=== PATIENT | male | born 1945 | race Caucasian/White ===

== ENCOUNTER 2021-12-26 07:50 | Outpatient (CLI) | payer MEDICARE, OTHER, SELFPAY ==
--- NOTE | 2021-12-26 08:03 | XRR_ITS ---
PROCEDURE INFORMATION: Exam: XR Abdomen Exam date and time: 12/26/2021 8:04 AM Age: 76 years old Clinical indication: Condition or disease; Kidney or ureter condition; Calculus (stone) in kidney; Additional info: Stones, kub @[facility] at 8:30 appt to follow TECHNIQUE: Imaging protocol: Radiologic exam of the abdomen. Views: Frontal supine view of the abdomen. 1 View. COMPARISON: CT abdomen pelvis wo con [id number] 12/25/2021 4:55 AM FINDINGS: Gastrointestinal tract: Moderate stool in the proximal transverse colon. Scattered gas and mild stool throughout the remainder of the colon. The rectum is decompressed. No small bowel distention or obstruction. Intraperitoneal space: No visible pneumoperitoneum. Organs: Stable 4 mm calculus in the right ureter at the L4-L5 level. Stable right renal calculi. Bones/joints: Degenerative changes and mild curvature of the lumbar spine. XR/XR KUB [id number] IMPRESSION: 1. Stable right ureteral calculus at L4-L5.
== END 2021-12-26 07:51 | disposition home or self-care (01) ==
LOC: RAD 07:57
PROVIDERS: PCP Student in an Organized Health Care Education/Training Program; Visit Provider Urology
DX: N20.1 Calculus of ureter (principal); N20.0 Calculus of kidney
CPT/HCPCS: 74018; 99204

== ENCOUNTER 2022-01-01 05:51 | Day surgery (SDC) | payer MEDICARE, OTHER, SELFPAY ==
[2021-12-28 13:15] VITALS: BMI 29.8
--- NOTE | 2021-12-28 13:30 | ANES.PREANE2 ---
Pre-Anesthetic Assessment Height/Weight: Height 1.8 m Weight 97.069 kg Preop Diagnosis: Refractory right ureteral calculus Operation Date: 01/01/22 07:00 Proposed Procedures p cystoscopy right retrograde ureteroscopy laser stent [id number] modifier 26,N20.1(Not Applicable) - Jone Lima MD s Retrograde Pyelogram(Right) - MD lew Roberts Laser Lithotripsy(Right) - MD lew Roberts Ureteral Stent Placement(Right) - Jone Lima MD Familial anesthetic complications: none Was Beta Yenny taken within 24 hours: N/A Was Clonidine taken within 24 hours: N/A Social Tobacco and No alcohol Exam alert, oriented x 3 and regular rate & rhythm b/l wheezing Airway Submandibular: within normal limits Cervical ROM: within normal limits Mallampati: Class I Dentition: false Pulmonary Asthma, Chronic Obstructive Pulmonary Disease and Sleep Apnea (Uses CPAP with 2 LPM O2 ) CV/HEM MET = 4 limited d/t SOB (no CP) Kidney stones Hepatic None reported GI Gastroesophageal Reflux Disease (Well controlled ) Constipated for five days since start of kidney stones, no N/V, using Bisacodyl he plans see PCP for this before the weekend. Metabolic Hyperlipidemia [facility] [place] None reported Neuropsych None reported Anesthetic Plan ASA status: 3 Anesthesia: Anesthesia Evaluation and General Other: We discussed risk and benefits of general anesthesia including PONV, sore throat (sometimes severe), corneal abrasion, positioning and peripheral nerve injuries, life threatening allergic reaction, post operative ICU admission requiring prolonged intubation, aspiration, stroke, heart attack, , and rare incidences of recall. Patient consents to proceed with general anesthesia. EKG ordered but not completed today. Will complete DOS. Risk of > 500 ml blood loss (7ml/kg in children): No Medications/Allergies Home Medications Medication Instructions Recorded Confirmed Last Taken Type amitriptyline 50 mg tablet 50 mg PO .AT HS PRN 12/26/21 12/26/21 Unknown History amlodipine 10 mg tablet 10 mg PO DAILY 12/26/21 12/26/21 Unknown History atorvastatin 20 mg tablet 20 mg PO .1/2 TABLET DAILY 12/26/21 12/26/21 Unknown History baclofen 20 mg tablet 20 mg PO .HS 12/26/21 12/26/21 Unknown History celecoxib 100 mg capsule 100 mg PO BID 12/26/21 12/26/21 Unknown History cetirizine 10 mg tablet 10 mg PO DAILY PRN 12/26/21 12/26/21 Unknown History fluticasone furoate 27.5 1 spray intranasal DAILY 12/26/21 12/26/21 Unknown History mcg/actuation nasal spray,suspension (Flonase Sensimist) gabapentin 600 mg tablet 600 mg PO QID 12/26/21 12/26/21 Unknown History guaifenesin 600 mg tablet, 600 mg PO BID 12/26/21 12/26/21 Unknown History extended release 12 hr lisinopril 40 mg tablet 40 mg PO DAILY 12/26/21 12/26/21 Unknown History omeprazole 20 mg capsule,delayed 20 mg PO BID 12/26/21 12/26/21 Unknown History release ondansetron 4 mg disintegrating 4 mg PO Q8H 12/26/21 12/26/21 Unknown History tablet oxycodone 5 mg capsule 5 mg PO .Q 4 HRS 12/26/21 12/26/21 Unknown History oxycodone-acetaminophen 5 mg-325 1 tab PO Q8H PRN Right renal colic 12/26/21 12/26/21 Unknown Rx mg tablet (Percocet) 8 days #24 tabs ropinirole 1 mg tablet 1 mg PO DAILY 12/26/21 12/26/21 Unknown History tamsulosin 0.4 mg capsule 0.4 mg PO DAILY 12/26/21 12/26/21 Unknown History insulin aspart U-100 100 unit/mL 5 unit SUBCUT TID 12/28/21 12/28/21 Unknown History subcutaneous cartridge (Novolog PenFill U-100 Insulin aspart) insulin glargine 100 unit/mL 75 unit SUBCUT QAM 12/28/21 12/28/21 Unknown History subcutaneous solution (Lantus U-100 Insulin) metformin 1,000 mg tablet 1,000 mg PO BID 12/28/21 12/28/21 Unknown History Allergies Allergy/AdvReac Type Severity Reaction Status Date / Time No Known Allergies Allergy Unverified 12/26/21 10:04 [facility] Anesthesia Medical History Bilateral kidney stones Family History Father , AT AGE 77 Cancer LUNG Mother , AT AGE 55 Cancer STOMACH Social History Smoking and tobacco status: current every day smoker Alcohol intake: never Marital status: Current occupational status: retired History of recent travel: No Data Anesthesia : 12/28/21 13:18 12/28/21 13:18 Cardiac Studies: No Data to Display
[2021-12-28 13:40] LABS: Basophils % 0.4 %; Eosinophils # 0.2 10^3/uL (0.0-0.8); Eosinophils % 1.8 %; Hematocrit 43.4 % (42.0-52.0); Hemoglobin 14.3 g/dL (11.7-16.6); Lymphocytes # 2.8 10^3/uL (0.8-4.8); Lymphocytes % 28.9 %; Mean Corpuscular HGB Conc 32.9 g/dL (30.0-36.0); Mean Corpuscular Hemoglobin 29.2 pg (28.0-34.0); Mean Corpuscular Volume 88.6 fl (80-94); Mean Platelet Volume 10.5 fL (7.4-10.4); Monocytes # 0.8 10^3/uL (0.2-0.9); Neutrophils # 5.96 10^3/uL (1.8-7.7); Neutrophils % 60.6 %; Nucleated Red Blood Cells % 0 %; Platelet Count 160 10^3/cmm (130-400); White Blood Count 9.8 10^3/uL (4.0-10.0)
[2021-12-28 13:58] LABS: Alanine Aminotransferase 15 U/L (0-41); Albumin Level 3.8 g/dL (3.5-5.2); Alkaline Phosphatase 74 U/L (40-130); Anion Gap 13.8 (5-19); Aspartate Amino Transferase 15 U/L (0-40); Blood Urea Nitrogen 13 mg/dL (8-23); Calcium 9.2 mg/dL (8.5-10.5); Carbon Dioxide 29 mmol/L (22-29); Chloride 99 mmol/L (98-107); Globulin 3.1 g/dL (1.3-4.6); Glucose 174 mg/dL (65-115); Osmolality Calculated 290 mOsm/kg (285-295); Potassium 3.8 mmol/L (3.5-5.1); Sodium 138 mmol/L (136-145); Total Bilirubin 0.7 mg/dL (0.15-1.2); Total Protein 6.9 g/dL (6.6-8.7)
[2022-01-01] VITALS (8 sets, daily range): BP systolic 135–181; BP diastolic 78–98; PULSE 80–100; RESP 12–38; TEMP 36.3–36.9; O2SAT 93–100
--- NOTE | 2022-01-01 | SCC_ITS ---
Procedure done: 1. Cystoscopy with right retrograde ureteropyelogram 2. Right ureteroscopy, laser, stent without string 50.6 seconds of fluoroscopic guidance, for a cumulative dose of 15.8 mGy, was provided to Dr. Lima by the radiology department. C-arm images of the abdomen were saved for the patient's permanent record. [facility]
--- NOTE | 2022-01-01 05:54 | XR_ITS ---
WS: [id number] Exam: XR chest 2V* [id number] Date/Time of Exam: 01/01/2022 5:54 AM Reason For Exam: COPD Comparison 12/25/2021. The lungs are hyperinflated and clear. Normal cardiomediastinal silhouette. No pleural effusions. Bon y structures are intact. Bilateral apical pleural thickening unchanged. XR/XR chest 2V* [id number] IMPRESSION: 1. Pulmonary hyperinflation which may indicate obstructive lung disease. No acu te process.
--- NOTE | 2022-01-01 06:15 | W.PM.OPSUD ---
Surgery/Procedure H&P Update DATE OF PROCEDURE: January 01, 2022 DATE H&P PERFORMED: 12/26/21 H&P UPDATE INFORMATION: I have reviewed H&P completed within last 30 days, I have examined patient prior to procedure and H&P is in [facility] EMR on date indicated CHANGES TO PREVIOUS DOCUMENTATION: Still symptomatic. Unaware of having passed the stone. Reviewed procedure again with benefits and risks. Discussed potential staged procedure again. He wants to proceed as scheduled PREOP DIAGNOSIS: Refractory right ureteral calculus PLANNED PROCEDURE: Operation Date: 01/01/22 07:00 Proposed Procedures p cystoscopy right retrograde ureteroscopy laser stent [id number] modifier 26,N20.1(Not Applicable) - Jone Lima MD s Retrograde Pyelogram(Right) - Jone Lima MD s Laser Lithotripsy(Right) - Jone Lima MD s Ureteral Stent Placement(Right) - Jone Lima MD
--- NOTE | 2022-01-01 06:34 | ECG_ITS ---
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 Measurements Intervals [place] Rate: 96 P: 72 ID: [id number] QRS: 47 QRSD: 93 T: 48 QT: 335 QTc: 423 Interpretive Statements SINUS RHYTHM WITH OCCASIONAL VENTRICULAR PREMATURE COMPLEXES WITH OCCASIONAL SUPRAVENTRICULAR PREMATURE COMPLEXES No previous ECG available for comparison Electronically Signed On 01-02-2022 0:07:04 CDT by Racheal Lanier M.D. [email or web address]
--- NOTE | 2022-01-01 06:36 | SC_ITS ---
WS: [id number] Exam: C-arm FL for Urology Date/Time of Exam: 01/01/2022 6:36 AM Reason For Exam: surgery Anterior posterior intraoperative C-arm images of the right abdomen are submitted for evaluation. A right-sided retrograde pyelogram has been performed and shows a persistent filling defect in the lo wer one third of the right ureter that apparently represents the patient's known ureteral stone. Ther e is partial obstruction. Contrast extends into the right renal pelvis. One image depicts a ureterosc ope and guidewire within the right renal pelvis and upper right ureter. WI/C-arm FL for Urology IMPRESSION: 1. Persistent filling defect in the lower one third of the right ureter suggest ing a partially obstructing renal calculus.
[2022-01-01 06:37] LABS: Glucose Point of Care 123 mg/dL (70-110)
[2022-01-01] MEDS: sodium chloride 0.9% 1,000 ML 30 ML IV (06:52)
[2022-01-01] MEDS: levofloxacin-dextrose 5 % 500 MG/100 ML PREMIX 100 MG IV (07:04)
--- NOTE | 2022-01-01 07:11 | PM.OP ---
Operative Report Date of procedure: January 01, 2022 Pre-op diagnosis: Refractory right ureteral calculus Post-op diagnosis: Refractory right ureteral calculus Procedure done: 1. Cystoscopy with right retrograde ureteropyelogram 2. Right ureteroscopy, laser, stent without string Implants: 6 Brazilian by 30 cm double-pigtail no string Specimens removed/disposition: Stone fragments Pathology: Stone fragments Surgeon: Clarence Estimated blood loss: Minimal Urine output: Not measured Complications: None Findings: Anesthesia: General Condition: Stable Disposition: PACU Intraoperative findings: RIGHT retrograde ureteropyelogram confirmed normal ureter with filling defect consistent with a stone seen previously. It had moved down approximately 3 inches to roughly the level of the pelvic mass Stone readily accessible and fragmented Indwelling stent placed (6 x 30 without string) Brief History: Mr. Chairez is a very pleasant 76-year-old white male recently diagnosed with approximately 6 mm right mid ureteral stone at [facility]. He had significant obstructive symptoms. CT confirmed stone and obstructive changes. On follow-up KUB could not clearly see the stone but there was a hint of a stone at the same position and he was still symptomatic having been unaware of having passed anything. He elected intervene and is admitted today to Outpatient Surgery for endoscopic treatment of the stone. We also discussed potential staged approach if the stone was not readily accessible at first attempt Procedure: After routine preoperative evaluation examination and obtaining of informed consent he was taken to the operating suite on 01/01/2022 where general anesthesia was administered without difficulty after appropriate timeout was performed, SCDs confirmed to be functioning, preoperative antibiotics administered, beta-ashwin protocol confirmed. Prepped and draped in usual sterile fashion in dorsolithotomy position paying careful attention to avoiding pressure points. 21 Brazilian cystoscope with 30 degree lens was introduced into the urethra meatus and advanced into the bladder under videoscopy. The bladder was systematically examined. No stone was seen. An 8 Brazilian cone-tip catheter was intubated into the right ureteral orifice for right retrograde pyelogram demonstrating: Flexible tip guidewire was then advanced up the right ureter and the intramural tunnel was dilated with a 15 Brazilian 4 cm balloon with no waist. Wire secured to the drapes as a safety wire and then the offset semirigid ureteroscope was advanced up the right ureter next to the guidewire where the stone was encountered in its expected position and then completely fragmented with a 365 ?m thulium superpulse laser fiber into mostly sand. Most the particles were flushed. Some independent sales representative samples were removed with an X catch basket. Final inspection showed some inflammatory changes and dilation and where the stone had been located; for that reason a stent was left indwelling. Cystoscope backloaded over the safety wire and a 6 Brazilian by 30 cm double-pigtail stent was advanced over the guidewire through the cystoscope into appropriate position as confirmed via fluoroscopy and cystoscopy Bladder was drained and the fragments. Stent was confirmed to be working He tolerated the procedure well without complications and was awakened in the operating room and returned to the recovery room in stable condition. PLANS: 1. Anticipate discharge from outpatient surgery 2. Follow-up late next week for cystoscopy and stent removal
[2022-01-01] MEDS: iohexol 300 mg/mL 50 mL Btl (OR ONLY) XX (07:40)
--- NOTE | 2022-01-01 07:43 | P.ANESUD_ITS ---
Pre-Anesthetic Update Pre-Anesthetic Assessment: Date of Surgery/Procedure: 01/01/22 Preop Kelsi gnosis: Refractory right ureteral calculus Proposed Procedure: Operation Date: 01/01/22 07:00 Proposed Procedures p cystoscopy right retrograde ureteroscopy laser stent [id number] modifier 26,N20.1(Not Applicable) - Jone Lima MD s Retrograde Pyelogram(Right) - MD lew Roberts Laser Lithotripsy(Right) - MD lew Roberts Ureteral Stent Placement(Right) - Jone Lima MD Any changes to Pre-Anesthetic Assessment?: No Last Intake: Intake Last Liquid Date 01/01/22 Last Liquid Time 01:30 Last Solid Date 12/31/21 Last Solid Time 17:00 Vitals: Temperature 98.4 F 01/01/22 06:22 Temperature Source Temporal Artery S can 01/01/22 06:22 Pulse Rate 87 01/01/22 06:22 Respiratory Rate 20 H 01/01/22 06:22 Blood Pressure 135/78 01/01/22 06:22 Blood Pressure Karen n 97 01/01/22 06:22 Pulse Oximetry 94 01/01/22 06:22 Oxygen Delivery Me thod 01/01/22 06:30 Exam: Pre-Anes Outpt Exam: alert, oriented x 3 and regular rate & rhythm Additional Exam Findings (including area of procedure): rhonchi/wheezing Cardiac Studies: No Data to Display
[2022-01-01 08:24] LABS: Glucose Point of Care 137 mg/dL (70-110)
--- NOTE | 2022-01-01 08:35 | SUR.PHASEI ---
0802 PT TO PACU 5 PT AWAKE ALERT ORIENTED X 3 HOB AT 40 DEGREES, PT COUGHS OCC, NON PRODUCTIVE, IV TO LT FA #20 WITH 300NS UP AT KVO RATE PER GRAVITY ID BRACELET TO LT WRIST, PT ID'D WITH 2 IDENTIFERS, BILAT SCDS ON, MONITOR SR WITH NO ECTOPY.
--- NOTE | 2022-01-01 15:58 | ANE.PACU2 ---
Inpatient post-anesthesia follow up: Airway intact: Yes Vital signs: Temperature 97.9 F Pulse Rate 80 Respiratory Rate 16 Blood Pressure 175/83 Pulse Oximetry 93 Oxygen Delivery Me thod Room Air Oxygen Flow Rate 2 Fraction of Inspir ed Oxygen Hydration adequate: Yes Nausea and vomiting: No Pain level: 2 Mental status: Baseline
== END 2022-01-01 09:40 | disposition home or self-care (01) ==
PROVIDERS: PCP Student in an Organized Health Care Education/Training Program; Visit Provider Urology
PROC: 0TJB8ZZ Inspection of Bladder, Via Natural or Artificial Opening Endoscopic (ICD-10-PCS; CPT 52000; principal; 2022-01-01 07:00)
PROC: (CPT 74420; 2022-01-01 07:00)
PROC: (CPT 52356; 2022-01-01 07:00)
PROC: (CPT 50605; 2022-01-01 07:00)
DX: N20.1 Calculus of ureter (principal); J44.9 Chronic obstructive pulmonary disease, unspecified; G47.30 Sleep apnea, unspecified; K21.9 Gastro-esophageal reflux disease without esophagitis; E78.5 Hyperlipidemia, unspecified; Z79.4 Long term (current) use of insulin; Z79.84 Long term (current) use of oral hypoglycemic drugs; F17.210 Nicotine dependence, cigarettes, uncomplicated
CPT/HCPCS: 52356; 36415; 36416; 71046; 76000; 80053; 82365; 82962; 85025; 88300; 93005; C2625; J1100; J1956; J2405; J2704; J2710; J3010; J3490; J7030

== ENCOUNTER → 2022-01-12 11:41 | Outpatient (BNVA) | payer MEDICARE, OTHER, SELFPAY | PROVIDERS: PCP Student in an Organized Health Care Education/Training Program; Visit Provider Urology | DX: N20.0 Calculus of kidney (principal); Z96.0 Presence of urogenital implants | CPT/HCPCS: 52310 ==

== ENCOUNTER 2022-01-15 10:16 | Emergency (ER) | payer MEDICARE, OTHER, SELFPAY ==
[2022-01-15 10:23] VITALS: BP 117/79; PULSE 107; RESP 16; TEMP 36.6; O2SAT 95; BMI 29.8
[2022-01-15 11:00] VITALS: BP 150/83; PULSE 90; O2SAT 95
--- NOTE | 2022-01-15 11:21 | ED_ITS ---
HPI - Back Pain/Injury General: Chief Complaint: Back Pain/Injury Stated Complaint: had kidney stones out and still in extreme pain. Time Seen by Provider: 01/15/22 10:26 Source: patient Mode of arrival: ambulatory History of Present Illness: 76-year-old male presents emergency room with complaint of right-sided flank and back pain. He refers to the pain on the right lower back just above the iliac crest. He recently had bilateral ureterolithiasis which were treated by lithotripsy he had a stent for a time that was removed 3 days ago. 2 days ago he said he had some gross hematuria he is not having any gross hematuria now but he still having back pain. Denies any fever sweats chills nausea vomiting or diarrhea. No recent injury or fall. MD elicited complaint: back pain Pertinent past history: kidney stones Onset (ago): day(s) Timing: constant Severity: moderate Similar Symptoms Previously: Yes Quality: sharp Location: right flank and right lower back Radiation: none Exacerbating factors: none Relieving factors: none Associated symptoms: Reports hematuria; Deny abdominal pain, arthralgias, chills, change in bowel habits, difficulty walking, dysuria, fatigue, fecal incontinence, fever(s), myalgias, nausea, numbness, syncope, tingling/numbness/burning, urinary frequency, urinary urgency, vomiting or weakness Review of Systems Const: Denies: fever(s), chills, fatigue or malaise ENMT: Denies: throat pain, ear or mastoid pain, nasal discharge or nasal congestion Card: Denies: chest pain, palpitations, irregular heart rhythm, edema or synco pe Resp: Denies: dyspnea, productive cough or non-productive cough GI: Denies: abdominal pain, nausea, vomiting, fecal incontinence or change in bowel habits : Reports: hematuria; Denies: flank pain, difficulty urinating, dysuria, urinary frequency or urinary urgency Musc: Denies: neck pain or back pain Skin/Breast: Denies: rash or pruritus Neuro: Denies: difficulty walking PFSH ED PFSH: Medical History Bilateral kidney stones Surgical History Status post laser lithotripsy of ureteral calculus December 2021, 6 mm RIGHT ureteral calculus Temporary stent Family History Father , AT AGE 77 Cancer LUNG Mother , AT AGE 55 Cancer STOMACH Social History Smoking and tobacco status: current every day smoker Alcohol intake: never Marital status: Current occupational status: retired History of recent travel: No Physical Exam Const: COMMON NORMALS: no acute distress GENERAL APPEARANCE: cooperative and comfortable ORIENTATION/CONSCIOUSNESS: Yes awake, Yes oriented to person, Yes oriented to place and Yes oriented to time HENMT: COMMON NORMALS: normocephalic, atraumatic and hearing grossly normal bilaterally HEAD & SCALP: normocephalic and atraumatic Resp: COMMON NORMALS: normal respiratory effort, No retractions, No use of accessory muscles and clear to auscultation bilaterally AUSCULTATION: clear to auscultation bilaterally Cardio: COMMON NORMALS: regular rate, regular rhythm and No murmurs present (Cardio) RATE: regular rate RHYTHM: regular rhythm GI: COMMON NORMALS: Soft to palpation and No hepatosplenomegaly present AUSCULTATION: Yes normoactive bowel sounds PALPATION: Yes Soft to palpation, No Tenderness to palpation present (GI), No Guarding due to palpation present (GI) and Yes No hepatosplenomegaly present Extremity: COMMON NORMALS: normal to inspection, capillary refill normal, no clubbing, cyanosis or edema, no calf tenderness and no pedal edema Neuro: SENSORIUM/ORIENTATION: Yes oriented to person, Yes oriented to place and Yes oriented to time Skin: COMMON NORMALS: no rashes or lesions noted GENERAL SKIN EXAM: no rashes or lesions noted Course Vital Signs: Vital signs: Vital Signs Temperature 97.9 F 01/15/22 10:23 Pulse Rate 90 01/15/22 13:30 Respiratory Rate 18 01/15/22 11:25 Blood Pressure 150/83 01/15/22 11:25 Pulse Oximetry 95 01/15/22 13:30 Oxygen Delivery Me thod 01/15/22 13:30 Oxygen Flow Rate 3 01/15/22 11:25 MDM - Back Pain/Injury Medical Decision Making No hematuria no sign of stone exam unremarkable labs reviewed. No stone on the KUB. Discharge patient home he is not behaving as if at this point he has an stone within the ureter he is relatively comfortable with no intervention. Follow-up with his urologist if he is worsening symptoms return. Is possible some of this is post stent ureteral spasm. Medical Records I reviewed the patient's medical records. Labs I reviewed the patient's lab results. : 01/15/22 11:05 01/15/22 11:05 Radiology Impressions KUB X-Ray 01/15/22 11:28 IMPRESSION: No acute findings. Laboratory Results WBC 12.8 10^3/uL (4.0-10.0) H 01/15/22 11:05 RBC 5.02 10^6/uL (4.1-5.3) 01/15/22 11:05 Hgb 14.9 g/dL (11.7-16.6) 01/15/22 11:05 Hct 44.5 % (42.0-52.0) 01/15/22 11:05 MCV 88.6 fl (80-94) 01/15/22 11:05 MCH 29.7 pg (28.0-34.0) 01/15/22 11:05 MCHC 33.5 g/dL (30.0-36.0) 01/15/22 11:05 RDW 13.9 % (12.1-15.1) 01/15/22 11:05 Plt Count 279 10^3/cmm (130-400) 01/15/22 11:05 MPV 10.8 fL (7.4-10.4) H 01/15/22 11:05 Neut % (Auto) 66.4 % 01/15/22 11:05 Lymph % (Auto) 25.6 % 01/15/22 11:05 [place] % (Auto) 6.8 % 01/15/22 11:05 Eos % (Auto) 0.2 % 01/15/22 11:05 Baso % (Auto) 0.4 % 01/15/22 11:05 Neut # (Auto) 8.52 10^3/uL (1.8-7.7) H 01/15/22 11:05 Lymph # (Auto) 3.3 10^3/uL (0.8-4.8) 01/15/22 11:05 [place] # (Auto) 0.9 10^3/uL (0.2-0.9) 01/15/22 11:05 Eos # (Auto) 0.0 10^3/uL (0.0-0.8) 01/15/22 11:05 Baso # (Auto) 0.1 10^3/uL (0.0-0.1) 01/15/22 11:05 Nucleated RBC % (auto) 0 % 01/15/22 11:05 Nucleated RBCs # 0.0 /100WBC 01/15/22 11:05 Sodium 136 mmol/L (136-145) 01/15/22 11:05 Potassium 4.2 mmol/L (3.5-5.1) 01/15/22 11:05 Chloride 98 mmol/L (98-107) 01/15/22 11:05 Carbon Dioxide 28 mmol/L (22-29) 01/15/22 11:05 Anion Gap 14.2 (5-19) 01/15/22 11:05 BUN 12 mg/dL (8-23) 01/15/22 11:05 Creatinine 0.6 mg/dL (0.7-1.2) L 01/15/22 11:05 GFR Calculation Not Reportable 01/15/22 11:05 Glucose 132 mg/dL (65-115) H 01/15/22 11:05 Calculated Osmolality 284 mOsm/kg (285-295) L 01/15/22 11:05 Calcium 9.0 mg/dL (8.5-10.5) 01/15/22 11:05 Total Bilirubin 0.5 mg/dL (0.15-1.2) 01/15/22 11:05 AST 13 U/L (0-40) 01/15/22 11:05 ALT 17 U/L (0-41) 01/15/22 11:05 Alkaline Phosphatase 100 U/L (40-130) 01/15/22 11:05 Total Protein 7.1 g/dL (6.6-8.7) 01/15/22 11:05 Albumin 3.8 g/dL (3.5-5.2) 01/15/22 11:05 Globulin 3.3 g/dL (1.3-4.6) 01/15/22 11:05 Urine Color Yellow (Yellow) 01/15/22 12:09 Urine Appearance Clear (CLEAR) 01/15/22 12:09 Urine pH 6 (5-7) 01/15/22 12:09 Ur Specific [place] 1.010 (1.005-1.030) 01/15/22 12:09 Urine Protein Neg (Negative) 01/15/22 12:09 Urine Glucose (UA) Norm (Normal) 01/15/22 12:09 Urine Ketones Negative (Negative) 01/15/22 12:09 Urine Blood Neg (Negative) 01/15/22 12:09 Urine Nitrate Negative (Negative) 01/15/22 12:09 Urine Bilirubin Neg (Negative) 01/15/22 12:09 Urine Urobilinogen Norm mg/dL (Negative) 01/15/22 12:09 Ur Leukocyte Esterase Negative (Negative) 01/15/22 12:09 Discharge Plan Discharge Patient Disposition: Home Clinical Impression: Ureter pain Condition: Stable Prescriptions: No Action gabapentin 600 mg tablet 600 mg PO QID guaifenesin 600 mg tablet extended release 12hr 600 mg PO BID cetirizine 10 mg tablet 10 mg PO DAILY PRN (Reason: Allergy Symptoms) celecoxib 100 mg capsule 100 mg PO BID oxycodone 5 mg capsule 5 mg PO Q4H ropinirole 1 mg tablet 1 mg PO DAILY ondansetron 4 mg tablet,disintegrating 4 mg PO Q8H PRN (Reason: Nausea And Vomiting) atorvastatin 20 mg tablet 10 mg PO DAILY baclofen 20 mg tablet 20 mg PO QPM amitriptyline 50 mg tablet 50 mg PO QPM PRN (Reason: Anxiety) omeprazole 20 mg capsule,delayed release(DR/EC) 20 mg PO BID Flonase Sensimist 27.5 mcg/actuation spray,suspension 1 spray intranasal DAILY Rx Instructions: into each nostril tamsulosin 0.4 mg capsule 0.4 mg PO DAILY amlodipine 10 mg tablet 10 mg PO DAILY lisinopril 40 mg tablet 40 mg PO DAILY prednisone 10 mg tablet 10 mg PO DAILY albuterol sulfate 90 mcg/actuation Hfa Aerosol Inhaler 2 puff INHALATION QID PRN (Reason: Shortness Of Breath Or Wheezing) Carlosi Aerosphere 160-9-4.8 mcg/actuation Hfa Aerosol Inhaler 2 inh INHALATION BID insulin glargine [Lantus U-100 Insulin] 100 unit/mL Solution 75 unit SUBCUT QAM metformin 1,000 mg Tablet 1,000 mg PO BID insulin aspart U-100 [Novolog PenFill U-100 Insulin] 100 unit/mL Cartridge 5 unit SUBCUT TID Rx Instructions: 3 units for breakfast, 4 units for lunch, and 5 units at dinner Discharge Orders: Discharge ED (Routine); Ordered 01/15/22 Ordered By: Robi Joshi Referrals: Julio Hobbs [Primary Care Provider] - Discharge Diet: Usual diet Discharge Activity: Increase activity as tolerated Patient Instructions: Abdominal Pain (ED), Opioid Safety, Pain Management Activity Restrictions/Additional Instructions: Follow-up with Dr. Lima as previously scheduled. If pain worsens follow- up/contact his office. Coding Level of Care Code ED Computer Information Science Professor for Erma Fwd Exam Detailed
[2022-01-15 11:25] VITALS: BP 150/83; PULSE 94; RESP 18; O2SAT 97
--- NOTE | 2022-01-15 11:28 | XRR_ITS ---
PROCEDURE INFORMATION: Exam: XR Abdomen Exam date and time: 01/15/2022 11:35 AM Age: 76 years old Clinical indication: Pain and condition or disease; Kidney or ureter condition; Calculus (stone) in kidney; Abdominal pain; Generalized; Prior surgery; Surgery date: Post-operative (0-2 days); Surgery type: Last Saturday had kidney stones out; Additional info: Renal stones TECHNIQUE: Imaging protocol: Radiologic exam of the abdomen. Views: Frontal supine view of the abdomen. 1 View. COMPARISON: CR XR KUB [id number] 12/26/2021 8:04 AM FINDINGS: Gastrointestinal tract: Normal. No bowel dilation. 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 XR/XR KUB portable [id number] IMPRESSION: No acute findings.
[2022-01-15 11:36] LABS: Basophils # 0.1 10^3/uL (0.0-0.1); Basophils % 0.4 %; Eosinophils % 0.2 %; Hematocrit 44.5 % (42.0-52.0); Hemoglobin 14.9 g/dL (11.7-16.6); Lymphocytes # 3.3 10^3/uL (0.8-4.8); Lymphocytes % 25.6 %; Mean Corpuscular HGB Conc 33.5 g/dL (30.0-36.0); Mean Corpuscular Hemoglobin 29.7 pg (28.0-34.0); Mean Corpuscular Volume 88.6 fl (80-94); Mean Platelet Volume 10.8 fL (7.4-10.4); Monocytes # 0.9 10^3/uL (0.2-0.9); Monocytes % 6.8 %; Neutrophils # 8.52 10^3/uL (1.8-7.7); Neutrophils % 66.4 %; Nucleated Red Blood Cells % 0 %; Platelet Count 279 10^3/cmm (130-400); Red Blood Count 5.02 10^6/uL (4.1-5.3); Red Cell Distribution Width 13.9 % (12.1-15.1); White Blood Count 12.8 10^3/uL (4.0-10.0)
[2022-01-15 11:55] LABS: Alanine Aminotransferase 17 U/L (0-41); Albumin Level 3.8 g/dL (3.5-5.2); Alkaline Phosphatase 100 U/L (40-130); Aspartate Amino Transferase 13 U/L (0-40); Blood Urea Nitrogen 12 mg/dL (8-23); Carbon Dioxide 28 mmol/L (22-29); Chloride 98 mmol/L (98-107); Globulin 3.3 g/dL (1.3-4.6); Glucose 132 mg/dL (65-115); Osmolality Calculated 284 mOsm/kg (285-295); Sodium 136 mmol/L (136-145); Total Bilirubin 0.5 mg/dL (0.15-1.2); Total Protein 7.1 g/dL (6.6-8.7)
[2022-01-15 12:00] VITALS: PULSE 92; O2SAT 95
[2022-01-15 12:00] LABS: Anion Gap 14.2 (5-19); Potassium 4.2 mmol/L (3.5-5.1)
[2022-01-15 12:25] LABS: Add Urine Microscopic? NO; Charge for UA Resulting for Rev
[2022-01-15 12:39] LABS: Bilirubin Urine Neg (Negative); Blood Urine Neg (Negative); Glucose Urine UA Norm (Normal); Ketones Urine Negative (Negative); Leukocyte Esterase Urine Negative (Negative); Nitrate Urine Negative (Negative); Protein Urine Neg (Negative); Urine Appearance Clear (CLEAR); Urine Color Yellow (Yellow); Urobilinogen Urine Norm (Negative); pH Urine 6 (5-7)
[2022-01-15 13:30] VITALS: PULSE 90; O2SAT 95
== END 2022-01-15 13:52 | disposition home or self-care (01) ==
PROVIDERS: Emergency Provider Family Medicine; PCP Student in an Organized Health Care Education/Training Program
DX: N23 Unspecified renal colic (principal); Z87.442 Personal history of urinary calculi
CPT/HCPCS: 36415; 74018; 80053; 81003; 85025; 99284

== ENCOUNTER → 2024-07-27 13:56 | Outpatient (BNVA) | payer MEDICARE, OTHER, SELFPAY | PROVIDERS: PCP Student in an Organized Health Care Education/Training Program; Visit Provider Internal Medicine | DX: R07.9 Chest pain, unspecified (principal) | CPT/HCPCS: 93005 ==

== ENCOUNTER 2024-08-05 07:53 | Outpatient (CLI) | payer MEDICARE, OTHER, SELFPAY ==
[2024-08-05 08:13] VITALS: BMI 23.0
--- NOTE | 2024-08-05 08:17 | ECG_ITS ---
[facility]24[facility]05 Pat Name: Robby Chairez Department: Room: Gender: Male Technical Fellow: : 1945 Requested By: Ace Han Order Number: [id number] Cierra MD: MICHELLE HERRERA Interpretive Statements Lung unchanged pre/post procedure; Intraprocedure shortess of breath; Symptoms resoled by discharge NOTE: Please note that this is the electrocardiogram portion of the Lexiscan/Sestamibi stress test. The perfusion scan will be documented separately. DATA: Baseline heart rate was 98 beats per minute. Baseline blood pressure was 153/81 millimeters of mercury. Target heart rate was 143. Maximum heart rate achieved was 117. which was 81% of the predicted target heart rate. Maximum blood pressure was 159/81 millimeters of mercury. The reason for ending the test was completion of the protocol. The patient did not experience any symptoms. ELECTROCARDIOGRAM: BASELINE: Sinus rhythm. Normal axis. Otherwise, no ST-T changes suggestive of ischemia noted. No arrhythmia noted. EXERCISE: After Lexiscan injection, no ST-T changes suggestive of ischemic noted. No arrhythmia noted. CONCLUSION: Please note due to baseline abnormality of the EKG specificity and sensitivity of the EKG portion of LexiScan MIBI stress test will be low 1. EKG not suggestive of ischemia 2. Lexiscan injection unremarkable. 3. Perfusion scan will be documented separately. Electronically Signed On 08-11-2024 19:39:34 CDT by MICHELLE HERRERA [email or web address]
--- NOTE | 2024-08-05 08:17 | NMCV_ITS ---
NM monica perf SPECT r/s* [id number] Robby Chairez Age: 79 Gender: M : 1945 Exam Date: 08/05/2024 08:50 Ordering Phys: Ace Han M.D ([email or web address]) Technologist: JANENE Hansen Exam Location: [facility] Indications: cp STRESS TEST Please see separate stress test report in [facility] for full findings IMAGE PROTOCOL Rest/Stress 1 Lexiscan Day Radiopharmaceutical Dose (mCi) Administration Site Administered by Rest: Tc-99m 10.3 IV Anel Sanchez, AUTO PARTS CLERK Sestamibi Stress:Tc-99m 32.5 IV Anel Broderickgle, AUTO PARTS CLERK Sestamibi Rest: 05-Aug-2024 60 Discovery 630 Stress: 05-Aug-2024 30 Discovery 630 0.4mg Lexiscan. Supine position only as patient was unable to lay prone. 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 This study is negative for ischemia. 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 This study is negative for ischemia. Cassandra Rodriguez MD (Electronically Signed) Final Date: 11 Aug 2024 12:51 S
[2024-08-05] MEDS: regadenoson 0.4 Mg/5 ml Syringe IVP (09:30)
[2024-08-05 10:09] VITALS: BP 116/84; PULSE 91
== END 2024-08-05 07:54 | disposition home or self-care (01) ==
LOC: CDL 07:55
PROVIDERS: PCP Student in an Organized Health Care Education/Training Program; Visit Provider Internal Medicine
DX: R07.9 Chest pain, unspecified (principal); R93.1 Abnormal findings on diagnostic imaging of heart and coronary circulation
CPT/HCPCS: 36415; 78452; 93017; 96374; A9500; J2785

== ENCOUNTER → 2024-09-29 13:30 | Outpatient (BNVA) | payer MEDICARE, OTHER, SELFPAY | PROVIDERS: PCP Family Medicine; Visit Provider Internal Medicine | DX: I48.91 Unspecified atrial fibrillation (principal); R07.9 Chest pain, unspecified; Z79.01 Long term (current) use of anticoagulants; F17.200 Nicotine dependence, unspecified, uncomplicated | CPT/HCPCS: 99214 ==

== ENCOUNTER → 2025-03-30 13:50 | Outpatient (BNVA) | payer MEDICARE, OTHER, SELFPAY | PROVIDERS: PCP Family Medicine; Visit Provider Internal Medicine | DX: I48.91 Unspecified atrial fibrillation (principal); Z79.01 Long term (current) use of anticoagulants | CPT/HCPCS: 99213 ==